=== PATIENT | female | born 1950 | race American Indian/Alaskan Native ===

== ENCOUNTER 2017-01-17 10:30 | Outpatient (CLI) | payer MEDICARE ==
--- NOTE | 2017-01-19 10:41 | Ultrasound Report ---
BILATERAL DIAGNOSTIC DIGITAL MAMMOGRAM WITH CAD AND TARGETED LEFT BREAST ULTRASOUND. HISTORY: Followup left breast mass. Today's study is compared to previous mammogram and ultrasound from [facility] performed in February and May of 2016. FINDINGS: A focal round nodular asymmetry is seen in the left breast at the 6 o'clock position similar in size and location to the previous study. This measures 6 mm in diameter on today's examination. There is no architectural distortion and no suspicious calcifications are present. The breast parenchyma is heterogeneously dense and the overall pattern is stable. Dense calcification in the upper right breast is stable. Targeted ultrasound of the left breast demonstrates an ovoid shaped complex circumscribed lesion at the 6 o'clock position measuring 6 x 4 x 6 mm. An area of increased echogenicity at the periphery of this lesion is consistent with a fatty hilum. There is no acoustic shadowing and the sonographic features appear benign. This correlates in size and location to the mammographic density. No additional focal findings are seen. IMPRESSION: Stable left breast nodule with benign imaging features, most likely an intramammary lymph node. BI-RADS CATEGORY: 2 = Benign ACR BI-RADS MAMMOGRAPHIC CODES: 0 = Needs additional imaging evaluation; 1 = Negative; 2 = Benign; 3 = Probably benign; 4 = Suspicious; 5 = Malignant; 6 = Known biopsy-proven malignancy COMMENT: 1. Dense breast tissue, i.e., adenosis, fibrocystic changes, etc., may obscure an underlying neoplasm. 2. Approximately 10% of cancers are not detected with mammography. 3. A negative mammography report should not delay biopsy if a clinically suspicious mass is present. RECOMMENDATION: Annual screening. COMMENT: Patient follow-up letters are generated by [employer].
== END 2017-01-17 10:31 | disposition home or self-care (01) ==
LOC: SPVWC 10:30
DX: N63 Unspecified lump in breast (principal)
CPT/HCPCS: 76642; G0204; 77066